=== PATIENT | male | born 1995 | race Caucasian/White ===

== ENCOUNTER 2018-05-28 12:10 | Emergency (ER) | payer BC, SELFPAY ==
[2018-05-28 12:18] VITALS: BP 113/57; PULSE 68; RESP 14; TEMP 36.6; O2SAT 100
--- NOTE | 2018-05-28 12:25 | DI.RAD.S_ITS ---
PROCEDURE: XR HAND RT MIN 3V INDICATIONS: deep lac to top of hand between 4/5 joint. TECHNIQUE: 3 views of the hand(s) acquired. COMPARISON: [facility], , HAND 3V LEFT, 03/01/2016, 15:46. FINDINGS: Bones: No fractures or dislocations. Carpal bones are normally aligned. No suspicious bony lesions. Soft tissues: No suspicious soft tissue calcifications. Soft tissue laceration seen near the fourth metacarpal phalangeal joint. No radiodense foreign body. IMPRESSION: Soft tissue laceration seen near the fourth MCP joint no underlying foreign body or fracture. Dictated by: Megan Martin M.D. on 05/28/2018 at 14:32 Approved by: Megan Martin M.D. on 05/28/2018 at 14:33
--- NOTE | 2018-05-28 15:51 | PC.NURSE ---
Dressing placed in triage.
[2018-05-28 16:17] VITALS: BP 120/60; PULSE 77; RESP 18; O2SAT 98
--- NOTE | 2018-05-28 18:33 | ED_ITS ---
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 Was a thin sharp piece of metal that cause laceration. His tetanus is current. He has full range of motion and sensation. He denies other injury. complaint: laceration Onset (ago): hour(s) Tetanus up to date: yes Location: R hand Severity: mild Pain Consistency: intermittent Relieving factors: none Exacerbating factors: none Associated symptoms: denies other symptoms Treatments prior to arrival: bandages Related Data Previous Rx's Medication Instructions Recorded cephalexin [Keflex] 500 mg PO QID 7 Days #28 cap 05/28/18 Allergies Allergy/AdvReac Type Severity Reaction Status Date / Time No Known Drug Allergies Allergy Verified 05/28/18 12:24 Review of Systems Constitutional Denies chills, Denies fever(s), Denies lethargy and Denies weakness Eyes Denies change in vision, Denies eye discharge, Denies irritation and Denies loss of vision ENT Ears, Nose, Mouth, and Throat: Denies change in voice, Denies neck pain and Denies sore throat Cardiovascular Denies chest pain, Denies irregular heart rhythm, Denies lightheadedness, Denies palpitations, Denies dyspnea, Denies dyspnea on exertion and Denies orthopnea Respiratory Denies cough, Denies dyspnea, Denies dyspnea on exertion and Denies wheezing Gastrointestinal Gastrointestinal: Denies abdominal pain, Denies change in bowel habits, Denies diarrhea, Denies nausea and Denies vomiting Genitourinary Denies hematuria, Denies flank pain, Denies urinary incontinence and Denies urinary urgency Musculoskeletal Denies neck pain Integumentary/Breasts Denies pruritus, Denies erythema, Denies rash and Reports wounds Neurologic Denies confusion, Denies loss of vision and Denies weakness Psychiatric Denies anxiety, Denies confusion, Denies depression, Denies homicidal ideation and Denies suicidal ideation Endocrine Denies palpitations Hematologic/Lymphatic Denies easy bruising Allergic/Immunologic Denies wheezing PFSH Social History Smoking Status: Former smoker Social History Smoking Status: Former smoker Exam Narrative Exam Narrative: GEN: AOx3 and in mild distress EYES: Pupils are equal, round, and reactive to light and accommodation. Extraoccular muscles are intact bilaterally. There is no subconjunctival hemorrhage or exudate. CHEST: Lungs are clear to auscultation bilaterally and free of wheezes, rales, or rhonchi. Heart rate is regular rhythm, there are no murmurs, clicks, rubs, or gallops. There is no chest wall tenderness. ABD: Abdomen is soft and nontender. There is no guarding or rebound. Bowel sounds are normal in all 4 quadrants. There is no mass or organomegaly. EXT: 4 cm laceration on dorsum of right hand and the soft tissue overlying the 4th and 5th metacarpals and into the webspace. As stated he has full range of motion, strength and sensation. Wound visualized in a bloodless field and it appears as if there is complete transection of an extensor tendon despite his exam findings. SKIN: Warm, pink, and dry. No erythema or rash Initial Vital Signs Initial Vital Signs: Vital Signs Temperature 97.8 F 05/28/18 12:18 Pulse Rate 68 05/28/18 12:18 Respiratory Rate 14 05/28/18 12:18 Blood Pressure 113/57 L 05/28/18 12:18 Pulse Oximetry 100 05/28/18 12:18 Procedures Laceration Repair Laceration 1: Site: hand Side (If applicable): right Size (cm): 4 Description: flap and clean Depth: involves muscle layer and involves tendon Local Anesthetic: lidocaine 1% and with bicarb Pre-repair: wound explored Skin layer closed with: nylon Size (cm): 5-0 Orthopedic Splinting/Casting Injury #1: Side: right Upper Extremity Injury Location: hand Upper Extremity Immobilizer: volar splint Post splinting neuro exam: intact Post splinting vascular exam: intact Placed by: Nursing Course Orders Ordered: ED Orders 05/28/18 12:25 XR hand RT min 3V Stat Discontinued Medications Hydrocodone Bitart/Acetaminophen (Vicodin Prepack) 1 bottle MISC SEEINSTR ONE Stop: 05/28/18 18:19 Cefazolin Sodium (Keflex) 1 bottle MISC SEEINSTR ONE Stop: 05/28/18 18:19 Consultations Consultation #1: I discussed the case with Dr. Stahl of [facility] whom states that suture, splint, antibiotics and close follow-up to determine a long-term plan is appropriate. Given his full range of motion, strength and sensation he thinks it is unlikely a critical tendon is involved, I share this opinion Vital Signs - 8 hr 05/28/18 12:18 05/28/18 16:17 Temperature 97.8 F Pulse Rate 68 77 Respiratory Rate 14 18 Blood Pressure 113/57 L Blood Pressure [Right Arm] 120/60 Pulse Oximetry 100 98 Discharge Plan Departure Patient Disposition: Home Clinical Impression: Extensor tendon laceration of hand with open wound Qualifiers: Encounter type: initial encounter Laterality: right Qualified Code(s): S66.821A - Laceration of other specified muscles, fascia and tendons at wrist and hand level, right hand, initial encounter Activity Restrictions/Additional Instructions: *You have been diagnosed with [ right hand laceration with possible extensor tendon laceration ] *What to do: *Take medications as directed *Follow up with [facility] in 2-3 days, call for an appointment. Let them know you were seen in the Emergency Department and that we ask that you be seen in follow up *Return to ER if you should have any new, worsening or concerning symptoms Prescriptions: New cephalexin [Keflex] 500 mg capsule 500 mg PO QID 7 Days Qty: 28 RF: 0 Referrals: Tone Stahl MD [Physician] -
[2018-05-28] MEDS: HYDROCODONE/ACET 5/325 PREPACK 1 BOTTLE MISC (19:12)
[2018-05-28] MEDS: cephALEXin 250 MG PREPACK 1 BOTTLE MISC (19:12)
[2018-05-28 19:34] VITALS: BP 111/54; PULSE 63; RESP 16; O2SAT 99
== END 2018-05-28 19:30 | disposition home or self-care (01) ==
PROVIDERS: Emergency Provider Emergency Medicine
DX: S66.821A Laceration of other specified muscles, fascia and tendons at wrist and hand level, right hand, initial encounter (principal); W26.8XXA Contact with other sharp object(s), not elsewhere classified, initial encounter
CPT/HCPCS: 12002; 73130; 99283

== ENCOUNTER 2022-07-15 14:46 | Inpatient (IN) | payer BC, SELFPAY ==
[2022-07-15] VITALS (48 sets, daily range): BP systolic 88–142; BP diastolic 39–75; PULSE 68–96; RESP 15–32; TEMP 36.6–36.9; O2SAT 95–100; BMI 31.1
--- NOTE | 2022-07-15 15:17 | DI.CT.S_ITS ---
PROCEDURE: CT HEAD/BRAIN WO CON INDICATIONS: Trauma TECHNIQUE: Noncontrast 4.5 mm thick angled axial sections acquired from the foramen magnum to the vertex, with coronal and sagittal reformats. For radiation dose reduction, the following was used: automated exposure control, adjustment of mA and/or kV according to patient size. COMPARISON: None. FINDINGS: Image quality: Excellent. CSF spaces: Basal cisterns are patent. No extra-axial fluid collections. Ventricles are normal in size and shape. Brain: No midline shift. No intracranial masses or hemorrhage. Kaplan-white matter interface is normal. Skull and face: Calvarium and visualized facial bones are intact, without suspicious lesions. Sinuses: Visualized sinuses and mastoids are clear. IMPRESSION: Normal CT of the brain Approved by: Olaf Moeller M.D. on 07/15/2022 at 15:02
--- NOTE | 2022-07-15 15:17 | DI.CT.S_ITS ---
PROCEDURE: CT CHEST ABD PEL W CON INDICATIONS: Trauma TECHNIQUE: After the administration of intravenous contrast, 5 mm thick sections acquired from the lung apices to the symphysis. 2.5 mm thick coronal and sagittal reformats were acquired. Additional 7 mm thick coronal maximum intensity projection (MIP) reformats acquired through the lungs. For radiation dose reduction, the following was used: automated exposure control, adjustment of mA and/or kV according to patient size. COMPARISON: None. FINDINGS: Chest: Cardiovascular: Heart size is normal. No evidence of pulmonary embolism, aortic aneurysm or dissection. Lungs and pleural spaces: Patchy pulmonary infiltrate in the anterior aspect of the left lung as well as both lower lobes probably reflect pulmonary contusion. No evidence of pulmonary laceration or pneumothorax. Lymph nodes: No mediastinal, hilar or axillary adenopathy. Mediastinum: Unremarkable. No hiatal hernia. Thyroid within normal limits. Chest Wall and Bones: Unremarkable. No acute fracture. Abdomen and Pelvis: Liver: Normal in size and attenuation. No contour deformity present. Biliary system: No calcified cholelithiasis or pericholecystic inflammation. No intra or extrahepatic bile duct dilatation. Pancreas: Unremarkable without mass or inflammation evident. Spleen: Normal in size and density. Adrenals: Normal morphology and density. Reproductive system: Unremarkable as visualized. Urinary system: Normal renal size and attenuation. No renal calculi, hydronephrosis, or solid mass present. Urinary bladder unremarkable. Gastrointestinal system: The bowel is unremarkable with no evidence of bowel obstruction or inflammation. The stomach appears unremarkable. Appendix: No findings to suggest acute appendicitis. Lymph nodes: No mesenteric or retroperitoneal adenopathy. Peritoneal spaces: No free air. No free fluid. Vasculature: The IVC, aorta and iliac vasculature are unremarkable. Abdominal wall: Abdominal wall intact without evidence of ventral or inguinal hernias. Musculoskeletal: Nondisplaced fracture through the left inferior pubic rami noted. Proximal left femur intact. IMPRESSION: 1. Multifocal pulmonary infiltrates, most consistent with pulmonary contusions in the setting of trauma. Differential would be pneumonia. No evidence of rib fracture or pneumothorax 2. Nondisplaced fracture through the left inferior pubic ramus. No pelvic hematoma. Proximal femurs intact. No solid organ injury Approved by: Olaf Moeller M.D. on 07/15/2022 at 15:14
--- NOTE | 2022-07-15 15:17 | DI.CT.S_ITS ---
PROCEDURE: CT CERVICAL SPINE WO CON INDICATIONS: Trauma TECHNIQUE: Noncontrast 3 mm thick sections acquired from the skull base to the T4 level. Sagittal and coronal reformats were then constructed. For radiation dose reduction, the following was used: automated exposure control, adjustment of mA and/or kV according to patient size. COMPARISON: None. FINDINGS: Image quality: Excellent. Bones: No fractures or dislocations. Visualized superior ribs are intact. Soft tissues: Prevertebral soft tissues are normal in thickness. No paravertebral hematomas. No apical pneumothoraces. IMPRESSION: Normal CT of the cervical spine Approved by: Olaf Moeller M.D. on 07/15/2022 at 15:03
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
[2022-07-15 15:26] LABS: INR 0.9 (0.9-1.3); Prothrombin Time 10.7 SECONDS (10.1-12.7)
[2022-07-15 15:28] LABS: PTT Partial Thromboplastin Tim 25 SECONDS (26-36)
[2022-07-15 15:31] LABS: Alanine Aminotransferase 42 IU/L (<50); Albumin 4.5 g/dL (3.5-5.0); Albumin Globulin Ratio 1.5 (1.0-2.8); Alkaline Phosphatase 41 U/L (38-126); Aspartate Aminotransferase 49 IU/L (17-59); BUN Creatinine Ratio 15.1 (6-22); Bilirubin Total 0.4 mg/dL (0.2-1.3); Blood Urea Nitrogen 14 mg/dL (9-20); Calcium 8.9 mg/dL (8.4-10.2); Carbon Dioxide 29 mmol/L (22-32); Chloride 102 mmol/L (98-107); Estimated Glomerular Filt Rate > 60 mL/min (>60); Ethanol (ETOH) < 10 mg/dL; Globulin 3.1 g/dL (1.7-4.1); Glucose 82 mg/dL (70-100); HEMOLYSIS < 15 (0-50); Lipase 142 U/L (23-300); Potassium 3.4 mmol/L (3.4-5.1); Sodium 138 mmol/L (137-145); Total Protein 7.6 g/dL (6.3-8.2)
[2022-07-15] MEDS: SODIUM CHLORIDE 0.9% 1,000 ML 150 ML IV ×2 (15:38→18:50)
[2022-07-15] MEDS: ACETAMINOPHEN 325 MG TABLET 975 MG PO (15:42)
[2022-07-15 15:49] LABS: Add Manual Diff / Slide Review NO; Basophils Absolute Auto 0 /uL (0-100); Basophils Percent Auto 0.2 % (0-2); Eosinophils Absolute Auto 0 /uL (0-450); Eosinophils Percent Auto 0.1 % (2-4); Hematocrit 43.3 % (41-53); Hemoglobin 14.6 g/dL (13.5-17.5); Lymphocytes Absolute Auto 1100 /uL (1100-4500); Mean Corpuscular HGB Conc 33.6 % (30-36); Mean Corpuscular Hemoglobin 28.5 PG (26-34); Mean Corpuscular Volume 84.8 fL (80-100); Monocytes Absolute Auto 1300 /uL (0-900); Neutrophils Absolute Auto 16500 /uL (1500-7000); Neutrophils Percent Auto 86.7 % (50-75); Platelet Count 332 X10^3/uL (150-400); Red Blood Cell Count 5.11 X10^6/uL (4.5-5.9); Red Cell Distribution Width 14.6 % (11.6-14.8)
--- NOTE | 2022-07-15 16:16 | DI.RAD.S_ITS ---
PROCEDURE: XR WRIST LT MIN 3V INDICATIONS: Fall, wrist pain. Lateral side TECHNIQUE: 3 views of the wrist were acquired. COMPARISON: None. FINDINGS: Bones: No fractures or dislocations. No suspicious bony lesions. Scaphoid view: Not applicable Soft tissues: No suspicious soft tissue calcifications. IMPRESSION: No acute bony abnormality. Dictated by: Reyes Lino M.D. on 07/15/2022 at 17:01 Approved by: Reyes Lino M.D. on 07/15/2022 at 17:02
--- NOTE | 2022-07-15 16:16 | DI.RAD.S_ITS ---
PROCEDURE: XR HAND LT MIN 3V INDICATIONS: Fall. Pain around digit 3 4 in 5. TECHNIQUE: 3 views of the hand(s) acquired. COMPARISON: [facility], [place], XR HAND RT MIN 3V, 05/28/2018, 12:44. [facility], [place], HAND 3V LEFT, 03/01/2016, 15:46. FINDINGS: Bones: No fractures or dislocations. Carpal bones are normally aligned. No suspicious bony lesions. Soft tissues: No suspicious soft tissue calcifications. IMPRESSION: No acute bony abnormality. Dictated by: Reyes Lino M.D. on 07/15/2022 at 17:01 Approved by: Reyes Lino M.D. on 07/15/2022 at 17:01
[2022-07-15 16:43] LABS: Bacteria Urine Occasional (0-1); Culture Indicated Urine Cult Not Indicated; Hyaline Casts Urine 5-10/LPF; RBC Urine >100/HPF (0-5/HPF); Squamous Epithelial Cell Urine None Seen (0-5/HPF); WBC Urine 1-5/HPF (0-5/HPF)
--- NOTE | 2022-07-15 16:43 | PC.NURSE ---
Provider cleared patient for removal of hard c- collar at 1642. Provider also ordered removal of patient non rebreather at 1642.
[2022-07-15 16:44] LABS: Urine Comments CX ORDERED BY MD
[2022-07-15 16:53] LABS: Creatine Kinase 515 U/L (55-170)
[2022-07-15 17:06] LABS: Troponin I < 0.012 ng/mL (0.01-0.034)
[2022-07-15 17:08] LABS: CKMB % Relative Index 0.3 % (1.5-5.0); Creatine Kinase MB 1.77 ng/mL (<2.37)
--- NOTE | 2022-07-15 17:15 | DI.RAD.S_ITS ---
PROCEDURE: XR CHEST 1V INDICATIONS: pulmonary contusion TECHNIQUE: One view of the chest was acquired. COMPARISON: [facility], CT, CT CHEST ABD PEL W CON, 07/15/2022, 15:26 FINDINGS: Surgical changes and devices: None. Lungs and pleura: There is a subtle airspace opacity in the left lower lobe consistent with pulmonary contusion. Mediastinum: Mediastinal contours appear normal. Heart size is normal. Bones and chest wall: No suspicious bony lesions. Overlying soft tissues appear unremarkable. IMPRESSION: Left lower lobe infiltrate consistent with pulmonary contusion. Dictated by: Nikhil Jamison M.D. on 07/15/2022 at 17:46 Approved by: Nikhil Jamison M.D. on 07/15/2022 at 17:48
[2022-07-15] MEDS: HYDROMORPHONE 1 MG INJ IV ×2 (17:35→21:04)
--- NOTE | 2022-07-15 17:42 | PC.NURSE ---
Patient received a chest x-ray and was placed in the highest position by automation control technician with board behind his back. As the xray was finishing the x-ray the patient complained that he was feeling dizzy. Patient had a blood pressure ran with a result of 101/49. Quickly checked cuff placement and restarted the blood pressure while dropping the back of the bed and placing the patient in reverse Trendelenburg position in the bed. I also called Dr. Nelson from patient bedside and he was immediately present at patient bedside. Dr. Fine gave verbal order to increase his fluids to a bolus of the remainder of the bag of fluids that was already being administered. Dr. Nelson and this RN stayed at bedside until blood pressure increased. This RN recieved orders to give patient 1mg Dilaudid for pain relief. Patient vitals continue to be closely monitored.
[2022-07-15 18:16] LABS: COVID19 -Nasal RAPID Negative (Negative)
[2022-07-15] MEDS: HYDROCODONE/ACET 5/325 TABLET 2 TAB PO (18:48)
[2022-07-15] MEDS: IBUPROFEN 600 MG TABLET PO ×2 (18:49→23:04)
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
[2022-07-15 20:11] LABS: BUN Creatinine Ratio 15.1 (6-22); Blood Urea Nitrogen 14 mg/dL (9-20); Calcium 9.2 mg/dL (8.4-10.2); Carbon Dioxide 25 mmol/L (22-32); Chloride 105 mmol/L (98-107); Estimated Glomerular Filt Rate > 60 mL/min (>60); Glucose 79 mg/dL (70-100); HEMOLYSIS < 15 (0-50); Potassium 3.6 mmol/L (3.4-5.1); Sodium 139 mmol/L (137-145)
[2022-07-15] MEDS: SODIUM CHLORIDE 0.9% FLUSH 10 ML IV (21:04)
[2022-07-15] MEDS: GABAPENTIN 300 MG CAPSULE PO (21:17)
--- NOTE | 2022-07-15 22:50 | PC.NURSE ---
Addendum entered by Ana Anna R.N. 07/16/22 05:14: Has slept at intervals. BP remains low but stable at 97/55 with MAP of 68. States pain better controlled but still 5/10 in left side of body but mainly in left hip region; describes pain as sharp and a pressure. Original Note: Patient is alert and oriented. Breath sounds w/inspiratory crackles in left lobes; RA sat is 95% and denies any SOB; is on continuous oximetry. HRR but BP low at 99/56; is asymptomatic. Denies nausea. BT present and abdomen is soft. Voids using urinal and denies any dysuria. Is able to turn himself in bed but states pain goes fro 6/10 to 12/10 with movement. Did not get significant relief from pain after receiving Vicodin earlier so contacted Dr. Wilkerson and order received for Dilaudid which took pain down to 4/10 although patient states he doesn't like the reza he gets after administration. Abrasions noted on left UE, left flank and left buttock/hip. States he has some numbness in left upper leg. Bilateral calf SCD's applied. Fall risk score is moderate but patient verbalizes agreement to call for assist when getting out of bed so alarm is not activated at this time.
[2022-07-16 00:28] VITALS: BP 100/50; PULSE 63; RESP 18; TEMP 36.7; O2SAT 96
[2022-07-16] MEDS: SODIUM CHLORIDE 0.9% 1,000 ML 150 ML IV ×4 (01:33→22:22)
[2022-07-16] MEDS: HYDROCODONE/ACET 5/325 TABLET 1 TAB PO (01:34)
[2022-07-16 05:00] VITALS: BP 97/55; PULSE 69; RESP 18; TEMP 36.6; O2SAT 97
[2022-07-16] MEDS: IBUPROFEN 600 MG TABLET PO (05:10)
[2022-07-16 06:15] LABS: Add Manual Diff / Slide Review NO; Basophils Absolute Auto 0 /uL (0-100); Basophils Percent Auto 0.3 % (0-2); Eosinophils Absolute Auto 100 /uL (0-450); Eosinophils Percent Auto 1.6 % (2-4); Hematocrit 34.8 % (41-53); Hemoglobin 11.9 g/dL (13.5-17.5); Lymphocytes Absolute Auto 2400 /uL (1100-4500); Lymphocytes Percent Auto 28.7 % (25-40); Mean Corpuscular HGB Conc 34.3 % (30-36); Mean Corpuscular Hemoglobin 29.1 PG (26-34); Mean Corpuscular Volume 84.9 fL (80-100); Monocytes Absolute Auto 800 /uL (0-900); Monocytes Percent Auto 9.3 % (3-14); Neutrophils Absolute Auto 4900 /uL (1500-7000); Neutrophils Percent Auto 60.1 % (50-75); Platelet Count 232 X10^3/uL (150-400); Red Cell Distribution Width 14.7 % (11.6-14.8); White Blood Cell Count 8.2 X10^3/uL (4.5-11.0)
[2022-07-16] MEDS: HYDROCODONE/ACET 5/325 TABLET 2 TAB PO ×3 (06:41→18:25)
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
[2022-07-16] MEDS: SODIUM CHLORIDE 0.9% FLUSH 10 ML IV ×2 (08:17→20:26)
[2022-07-16] MEDS: CELECOXIB 200 MG CAPSULE PO ×2 (08:17→20:25)
[2022-07-16] MEDS: LIDOCAINE PATCH 1 EACH ADH..PATCH 2 EACH TOP (08:17)
[2022-07-16] MEDS: GABAPENTIN 300 MG CAPSULE PO ×3 (08:17→20:26)
[2022-07-16 09:00] VITALS: BP 100/59; PULSE 70; RESP 17; TEMP 36.2; O2SAT 96
[2022-07-16] MEDS: HYDROMORPHONE 1 MG INJ IV ×3 (09:55→22:20)
[2022-07-16 11:23] VITALS: BP 105/47; PULSE 70; RESP 17; TEMP 36.5; O2SAT 92
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
[2022-07-16 15:02] VITALS: BP 122/62; PULSE 85; RESP 17; TEMP 36.4; O2SAT 93
[2022-07-16 20:00] VITALS: BP 122/77; PULSE 87; RESP 21; TEMP 36.3; O2SAT 97
[2022-07-17 00:05] VITALS: BP 123/68; PULSE 81; RESP 21; TEMP 36.1; O2SAT 94
[2022-07-17] MEDS: HYDROCODONE/ACET 5/325 TABLET 2 TAB PO ×2 (05:09→10:14)
[2022-07-17 05:13] VITALS: BP 107/54; PULSE 72; RESP 19; TEMP 36.1; O2SAT 97
[2022-07-17 08:00] VITALS: BP 114/60; PULSE 68; RESP 17; TEMP 36.6; O2SAT 96
[2022-07-17] MEDS: CELECOXIB 200 MG CAPSULE PO (10:14)
[2022-07-17] MEDS: GABAPENTIN 300 MG CAPSULE PO (10:14)
[2022-07-17] MEDS: LIDOCAINE PATCH 1 EACH ADH..PATCH 2 EACH TOP (10:15)
[2022-07-17] MEDS: SODIUM CHLORIDE 0.9% FLUSH 10 ML IV (10:16)
--- NOTE | 2022-07-17 13:44 | PC.NURSE ---
Pt discharged home at 1345, escorted off the floor in wheelchair accompanied by mother and hospital staff. IVs removed, discharge teaching provided including new medications, flying precautions and follow up appointments. Dr. Fritz was called regarding specific instructions about work and follow up appointments, she came to the bedside to speak with the patient before he was discharged. All belongings left with patient.
--- NOTE | 2022-07-17 14:15 | P.PN_ITS ---
Subjective Subjective Interval history: He notes he is doing better. He has mobilized with Physical therapy some. He has fairly mild pain on the right in the back. He is having ongoing pain on the left anterior hip and pelvic area. He denies any new numbness Exam Vital Signs (past 8 hours): - 07/17/22 08:00 07/17/22 09:45 Temperature 97.8 F Pulse Rate 68 Respiratory Rate 17 Blood Pressure 114/60 Pulse Oximetry 96 Oxygen Delivery Method Room Air Oxygen Flow Rate 0 Oxygen Delivery Method Room Air Oxygen Flow Rate 0 Narrative Exam Narrative: Mild tenderness posteriorly over his sacrum, left hip no significant pain with gentle range of motion, tender to palpation over the anterior pelvis, bowel sounds positive. Calf soft bilaterally distally, neurologically intact distally Objective Labs 07/16/22 05:40 07/15/22 17:15 [facility] Medical History No active medical problems Social History household members: family Smoking Status: Former smoker Assessment & Plan Assessment and plan (1) Sacral fracture, closed: Status: Acute (2) Fracture of superior pubic ramus: Status: Acute (3) Contusion of left lung: Status: Acute (4) Closed fracture of right inferior pubic ramus: Status: Acute Plan He is doing better overall. He has nondisplaced pelvic fractures. He is going to return to clinic in 7-10 days to see the PA. We should get new x-rays an AP pelvis and an inlet and outlet view of his pelvis. He can be partial weight- bearing on the left lower extremity. We discussed precautions in terms of avoiding heavy lifting falls and he is going to use crutches. 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 I told him that I do not anticipate him being able to return to that level of work for at least 6 weeks post injury and it may be closer to 8-10 weeks.
== END 2022-07-17 13:50 | disposition home or self-care (01) | DRG 965 ==
LOC: ED 15:46 → AC 17:14
PROVIDERS: Admitting Provider Surgery; Emergency Provider Emergency Medicine; Referring Provider Emergency Medicine; Visit Provider Surgery
DX: S32.501A Unspecified fracture of right pubis, initial encounter for closed fracture (principal); S27.321A Contusion of lung, unilateral, initial encounter; S32.10XA Unspecified fracture of sacrum, initial encounter for closed fracture; S60.222A Contusion of left hand, initial encounter; V86.56XA Driver of dirt bike or motor/cross bike injured in nontraffic accident, initial encounter; Z87.891 Personal history of nicotine dependence; Z20.822 Contact with and (suspected) exposure to COVID-19
CPT/HCPCS: 36415; 70450; 71045; 71260; 72125; 73110; 73130; 74177; 80048; 80053; 80320; 81003; 81015; 82272; 82550; 82553; 83690; 84484; 85025; 85610; 85730; 86850; 86900; 86901; 87086; 87635; 93005; 96374; 97161; 97530; 99231; 99285; 99291; 99292; C9803; J1170; Q9967

== ENCOUNTER → 2022-08-07 11:18 | Outpatient (CLI) | payer BC, SELFPAY ==
[2022-07-15 18:32] VITALS: BMI 31.1
--- NOTE | 2022-08-07 | DI.US.S_ITS ---
PROCEDURE: US PERIPH VENOUS LOW EXTREM LT INDICATIONS: SWELLING TECHNIQUE: Real-time imaging, as well as color and pulse Doppler interrogation, were performed of the lower extremity deep veins from the inguinal ligament to the popliteal fossa. COMPARISON: None. FINDINGS: The common femoral, femoral and popliteal veins are normally compressible, and free of intraluminal thrombus. Color and pulse Doppler demonstrate normal phasic intraluminal flow. There is normal augmentation response to distal compression maneuver. IMPRESSION: No DVT found. Source of reported pain in swelling is not identified. Dictated by: Werner Yoder M.D. on 08/07/2022 at 13:05 Approved by: Werner Yoder M.D. on 08/07/2022 at 13:06
== END ==
PROVIDERS: Referring Provider Physician Assistant; Visit Provider Physician Assistant
DX: S32.592A Other specified fracture of left pubis, initial encounter for closed fracture (principal); X58.XXXA Exposure to other specified factors, initial encounter; M79.89 Other specified soft tissue disorders
CPT/HCPCS: 93971